=== PATIENT | male | born 1955 | race Hispanic/Latino ===

== ENCOUNTER → 2024-12-22 | Outpatient (CLI) | payer OTHER ==
[~2024-12-22] MED LIST: ATOR10 PO; MVI PO
[2024-12-22 09:24] LABS: CREATININE 0.9 mg/dL (0.5-1.3); GLOMERULAR FILTR. RATE CALC 92.0 mL/min (>90); UREA NITROGEN, BLOOD 11.0 mg/dL (7-18)
== END | disposition home or self-care (01) ==
LOC: LAB 08:13
PROVIDERS: ATTEND Surgery
DX: C18.4 Malignant neoplasm of transverse colon (principal)
CPT/HCPCS: 36415; 82565; 84520

== ENCOUNTER → 2024-12-26 | Outpatient (CLI) | payer OTHER ==
[~2024-12-26] MED LIST changes: +IOHEXOL 350 MG/ML 100ML INFUS..BTL IV ONE
--- NOTE | 2024-12-26 16:00 | HMCIMG ---
INDICATION: Malignant neoplasm of transverse colon. COMPARISON: None. TECHNIQUE: After obtaining the patient's consent, CT images were obtained with non-ionic intravenous contrast material. Numerous low-radiation dose strategies were employed including AEC (Automatic Exposure Control), individualized BMI-based low dose scan protocols and the exam was performed on a CT scanner that is compliant with the NEMA XR-29 Smart Dose Standard. DICOM Radiation Dose Structured Reporting capability and Dose Check Standard are also features of this scanner. RADIATION DOSE ESTIMATE: CTDIvol (mGy): 12.70 \ DLP (mGy-cm): 728.20 FINDINGS: THORAX: LUNGS: Normal. No visible pulmonary disease. There is no nodule seen in the lung. AIRWAYS: No endobronchial lesion.. VASCULATURE: The main pulmonary artery is of normal caliber. No pulmonary edema. MEDIASTINUM/LELAND: No enlarged lymph nodes. CARDIAC: No cardiac enlargement, or significant pericardial effusion. AORTA: Normal in caliber. PLEURA: Normal. No mass or effusion. CHEST WALL: No mass or axillary adenopathy. ABDOMEN AND PELVIS LIVER: No focal hepatic abnormality. BILIARY: No calcified gallstones No intra or extrahepatic biliary ductal dilatation. PANCREAS: Normal. No lesion, fluid collection, ductal dilatation, or acute inflammation. SPLEEN: Normal. No enlargement or focal lesion. STOMACH/DUODENUM: Unremarkable. ADRENALS: Normal. No mass or enlargement. KIDNEYS: Normal. No mass, obstruction, or nephrolithiasis. BOWEL/MESENTERY: Normal. No visible mass, obstruction, or bowel wall thickening. AORTA/VASCULAR: No aneurysm. Mild atherosclerotic disease. PERITONEUM/RETROPERITONEUM: Normal. No mass, ascites or free air. LYMPH NODES: No pathologically enlarged lymph nodes. URINARY BLADDER: Normal. No visible focal wall thickening, lesion, or calculus. PELVIC ORGANS: Demonstrate the prostate is similar breast appears minimal. ABDOMINAL WALL/SOFT TISSUES: Normal. No mass or hernia. BONES: No acute osseous abnormality. An anterior abdominal wall superficial. There is fat stranding seen. IMPRESSION: Anterior abdominal wall suprapubic region subcutaneous fat stranding No acute process seen in the CT of the chest abdomen and pelvis with intravenous contrast..
== END | disposition home or self-care (01) ==
LOC: RAH 09:39
PROVIDERS: ATTEND Surgery
DX: C18.4 Malignant neoplasm of transverse colon (principal); I70.0 Atherosclerosis of aorta
CPT/HCPCS: 71260; 74177; Q9967